=== PATIENT | female | born 1935 | race Caucasian/White ===

== ENCOUNTER 2017-03-15 00:46 | Inpatient (IN) | payer OTHER ==
[2017-03-15] VITALS (24 sets, daily range): BP systolic 87–134; BP diastolic 37–67
[~2017-03-15] VITALS: Ht 160 cm; Wt 84.7 kg
[~2017-03-15 00:46] MED LIST: ALLOPURINOL300 MG PO; AMITRIPTYLINE H25 MG PO; DILANTIN100 MG PO; HYDROCHLOROTHIA25 MG PO; OSTEO BI-FLEX1 EAC1 PO; OSTERA TABLET1 EACH PO; SPIRIVA1 INHALATI IH; VENTOLIN HFA18 GM IH; ZOLOFT50 MG PO
[2017-03-15 01:53] LABS: INTER. NORMALIZED RATIO 1.3
[2017-03-15 01:54] LABS: CHLORIDE 102 mEq/L (99-109); SODIUM 132 mEq/L (136-147)
[2017-03-15 01:55] LABS: MAGNESIUM 1.9 mg/dL (1.3-2.7); PTT 23.7 SEC (25-37)
[2017-03-15 01:57] LABS: GLUCOSE 140 mg/dL (70-99); TOTAL PROTEIN 7.9 g/dL (6.4-8.3)
[2017-03-15 01:59] LABS: TOTAL BILIRUBIN 0.3 mg/dL (0.0-1.0)
[2017-03-15 02:00] LABS: ALKALINE PHOSPHATASE 68 IU/L (3-129)
[2017-03-15 02:01] LABS: CREATININE 0.8 mg/dL (0.6-1.3); GFR ESTIMATE (CALCULATED) > 59 mL/min/
[2017-03-15 02:02] LABS: AST (GOT) 48 IU/L (2-34); UREA NITROGEN (BUN) 23 mg/dL (9-23)
[2017-03-15 02:04] LABS: ALT (GPT) 46 IU/L (3-49); BASOPHIL (%) 0 % (0-1); EOSINOPHIL (%) 0 % (0-5); HEMATOCRIT 18.8 % (36.0-46.0); HEMOGLOBIN 6.3 G/DL (11.9-15.5); IMMATURE GRANULOCYTE (%) 0.9 % (0.0-0.7); LYMPHOCYTE (%) 6.9 % (15-42); LYMPHOCYTE COUNT 0.3 K/uL (1.0-2.8); MCHC 33.5 G/DL (30.0-36.0); MCV 98.4 FL (83-99); MONOCYTE (%) 7.5 % (3-12); MONOCYTE COUNT 0.3 K/uL (0-0.8); NEUTROPHIL (%) 84.7 % (45-76); NEUTROPHIL COUNT 3.8 K/uL (1.8-6.4); PLATELET COUNT 79 K/uL (156-360); RBC DIS.WIDTH-CV 18.1 % (11.8-14.6); RBC DIS.WIDTH-SD 58.4 % (39-53); RED BLOOD COUNT 1.91 M/uL (3.80-5.20); WHITE BLOOD COUNT 4.5 K/uL (4.1-10.2)
[2017-03-15 02:06] LABS: TROP-I INTERPRETATION NEGATIVE; TROPONIN-I 0.06 ng/mL (0.0-0.30)
[2017-03-15 03:31] LABS: BICARBONATE 19.8 mEq/L (22-26); CARBOXY HGB 1.3 % (0-5); COMMENTS - BLOOD GASES C+; FI02 21 %; METHEMOGLOBIN 0.8 % (0-1.5); PCO2 26 mm Hg (35-45); PO2 67 mm Hg (80-100); SITE LB; pH 7.49 (7.35-7.45)
[2017-03-15] MEDS ORDERED: POTASSIUM CHLO20 ME2 PO (07:53)
[2017-03-15] MEDS ORDERED: ALLOPURINOL300 MG PO (07:53)
[2017-03-15] MEDS ORDERED: ACETAMINOPHEN500 MG PO (10:47)
[2017-03-15] MEDS ORDERED: ACYCLOVIR400 MG PO (10:47)
[2017-03-15] MEDS ORDERED: DECADRON4 MG PO (10:49)
[2017-03-15 11:22] LABS: APPEARANCE CLOUDY ((CLEAR)); BILIRUBIN NEGATIVE; BLOOD SMALL; COLOR YELLOW ((YELLOW)); GLUCOSE (STRIP) NEGATIVE; KETONES NEGATIVE; LEUKOCYTES LARGE; NITRITE NEGATIVE; PROTEIN (STRIP) 30; UROBILINOGEN 0.2 MG/DL (0.2-1.0)
[2017-03-15 13:29] LABS: RED BLOOD CELLS 0-5 /HPF (0-5); WHITE BLOOD CELLS TNTC /HPF (0-5)
[2017-03-15 13:30] LABS: BACTERIA NONE SEEN /HPF; EPITHELIAL CELLS 1+ /HPF; MUCUS NONE SEEN /LPF; UCUL ADDED? YES
[2017-03-15 13:38] LABS: SPECIFIC GRAVITY 1.065 (1.000-1.030)
[2017-03-16] VITALS (9 sets, daily range): BP systolic 99–153; BP diastolic 52–74
[2017-03-16 05:46] LABS: HEMATOCRIT 24.5 % (36.0-46.0); HEMOGLOBIN 8.1 G/DL (11.9-15.5); MCH 30.9 PG (29.0-34.0); MCHC 33.1 G/DL (30.0-36.0); PLATELET COUNT 59 K/uL (156-360); RBC DIS.WIDTH-CV 18.6 % (11.8-14.6); RBC DIS.WIDTH-SD 58.2 % (39-53); WHITE BLOOD COUNT 6.6 K/uL (4.1-10.2)
[2017-03-16 05:49] LABS: MCV 93.5 FL (83-99); RED BLOOD COUNT 2.62 M/uL (3.80-5.20)
[2017-03-16 06:42] LABS: ALKALINE PHOSPHATASE 60 IU/L (3-129); ALT (GPT) 53 IU/L (3-49); AST (GOT) 37 IU/L (2-34); CHLORIDE 103 MEQ/L (99-109); CREATININE 0.8 MG/DL (0.6-1.3); GFR ESTIMATE (CALCULATED) > 59 mL/min/; GLUCOSE 140 mg/dL (70-99); POTASSIUM 4.4 MEQ/L (3.7-5.4); SODIUM 135 MEQ/L (136-147); TOTAL BILIRUBIN 0.4 MG/DL (0.0-1.0); TOTAL PROTEIN 7.8 G/DL (6.4-8.3); UREA NITROGEN (BUN) 23 mg/dL (9-23)
[2017-03-17 03:16] VITALS: BP 160/74
[2017-03-17 06:38] LABS: HEMOGLOBIN 8.4 G/DL (11.9-15.5); MCH 30.5 PG (29.0-34.0); MCHC 32.3 G/DL (30.0-36.0); MCV 94.5 FL (83-99); PLATELET COUNT 75 K/uL (156-360); RBC DIS.WIDTH-CV 18.6 % (11.8-14.6); RBC DIS.WIDTH-SD 57.4 % (39-53); RED BLOOD COUNT 2.75 M/uL (3.80-5.20); WHITE BLOOD COUNT 8.7 K/uL (4.1-10.2)
[2017-03-17 07:07] LABS: ALBUMIN 3.2 G/DL (3.2-4.8); ALKALINE PHOSPHATASE 59 IU/L (3-129); ALT (GPT) 62 IU/L (3-49); AST (GOT) 31 IU/L (2-34); CHLORIDE 106 MEQ/L (99-109); CREATININE 0.7 MG/DL (0.6-1.3); GFR ESTIMATE (CALCULATED) > 59 mL/min/; GLUCOSE 122 mg/dL (70-99); SODIUM 137 MEQ/L (136-147); TOTAL BILIRUBIN 0.4 MG/DL (0.0-1.0); TOTAL PROTEIN 8.3 G/DL (6.4-8.3); UREA NITROGEN (BUN) 24 mg/dL (9-23)
[2017-03-17 07:44] VITALS: BP 162/77
[2017-03-17 11:54] VITALS: BP 138/63
== END 2017-03-17 13:17 | disposition home or self-care (01) | DRG 864 ==
LOC: EME 00:46 → 3EAST 03:39 → EDOF 03:39 → 4WEST 03:39 → CANRESERV 03:48 → ENRESERV 03:48 → 4WEST 06:06 → ENRESERV 03-16 06:51 → 3EAST 03-16 13:42
PROVIDERS: Emergency Medicine; Hospitalist; Internal Medicine
PROC: 30233N1 Transfusion of Nonautologous Red Blood Cells into Peripheral Vein, Percutaneous Approach (ICD-10-PCS; principal; 2017-03-15)
DX: R50.2 Drug induced fever (principal); E87.1 Hypo-osmolality and hyponatremia; T45.1X5A Adverse effect of antineoplastic and immunosuppressive drugs, initial encounter; J44.9 Chronic obstructive pulmonary disease, unspecified; C88.0 Waldenstrom macroglobulinemia; I11.0 Hypertensive heart disease with heart failure; I50.9 Heart failure, unspecified; R16.1 Splenomegaly, not elsewhere classified; R91.1 Solitary pulmonary nodule; D64.81 Anemia due to antineoplastic chemotherapy; E78.5 Hyperlipidemia, unspecified; E87.2 Acidosis; K21.9 Gastro-esophageal reflux disease without esophagitis; D73.89 Other diseases of spleen; D69.59 Other secondary thrombocytopenia; G40.909 Epilepsy, unspecified, not intractable, without status epilepticus; D86.9 Sarcoidosis, unspecified; I95.9 Hypotension, unspecified; E66.9 Obesity, unspecified; Z68.33 Body mass index [BMI] 33.0-33.9, adult
CPT/HCPCS: 36415; 36600; 71045; 71275; 74177; 80048; 80053; 80076; 80185; 81003; 82248; 82272; 82803; 83605; 83735; 83880; 84484; 85025; 85027; 85610; 85730; 86850; 86870; 86900; 86901; 86920; 87040; 87086; 87502; 87641; 93005; 94640; 94640 76; 94799; 97530 GP; 99202; 99281; 99285; J1940; J2543; J2930; J3370; J7050; J7120; P9016

== ENCOUNTER 2017-04-11 21:20 | Inpatient (IN) | payer OTHER ==
[~2017-04-11] VITALS: Ht 162.6 cm; Wt 82.5 kg
[~2017-04-11 21:20] MED LIST changes: +ACYCLOVIR400 MG PO; +DECADRON4 MG PO; +POTASSIUM CHLO20 ME2 PO; +TYLENOL EXTRA500 MG PO
[2017-04-11 22:25] LABS: BASOPHIL (%) 0 % (0-1); EOSINOPHIL (%) 0.1 % (0-5); HEMATOCRIT 23.9 % (36.0-46.0); HEMOGLOBIN 7.9 G/DL (11.9-15.5); IMMATURE GRANULOCYTE (%) 0.7 % (0.0-0.7); LYMPHOCYTE (%) 1.2 % (15-42); LYMPHOCYTE COUNT 0.1 K/uL (1.0-2.8); MCH 34.2 PG (29.0-34.0); MCHC 33.1 G/DL (30.0-36.0); MONOCYTE (%) 7.2 % (3-12); MONOCYTE COUNT 0.6 K/uL (0-0.8); NEUTROPHIL (%) 90.8 % (45-76); NEUTROPHIL COUNT 7.3 K/uL (1.8-6.4); PLATELET COUNT 118 K/uL (156-360); RBC DIS.WIDTH-CV 26.5 % (11.8-14.6); RBC DIS.WIDTH-SD 92.5 % (39-53); RED BLOOD COUNT 2.31 M/uL (3.80-5.20)
[2017-04-11 22:26] LABS: MCV 103.5 FL (83-99)
[2017-04-11 22:29] LABS: ALBUMIN 3.7 g/dL (3.2-4.8)
[2017-04-11 22:30] LABS: CHLORIDE 104 mEq/L (99-109); POTASSIUM 3.7 mEq/L (3.7-5.4); SODIUM 136 mEq/L (136-147)
[2017-04-11 22:32] LABS: TOTAL PROTEIN 7.1 g/dL (6.4-8.3)
[2017-04-11 22:34] LABS: TOTAL BILIRUBIN 0.4 mg/dL (0.0-1.0)
[2017-04-11 22:35] LABS: ALKALINE PHOSPHATASE 78 IU/L (3-129); GLUCOSE 121 mg/dL (70-99)
[2017-04-11 22:36] LABS: CREATININE 0.8 mg/dL (0.6-1.3); GFR ESTIMATE (CALCULATED) > 59 mL/min/
[2017-04-11 22:37] LABS: AST (GOT) 43 IU/L (2-34)
[2017-04-11 22:39] LABS: ALT (GPT) 41 IU/L (3-49); LIPASE 40 U/L (1.0-51.0); UREA NITROGEN (BUN) 21 mg/dL (9-23)
[2017-04-11 22:45] LABS: TROP-I INTERPRETATION NEGATIVE; TROPONIN-I < 0.01 ng/mL (0.0-0.30)
[2017-04-12] VITALS (14 sets, daily range): BP systolic 92–139; BP diastolic 53–80
[2017-04-12] MEDS ORDERED: KLOR-CON M2020 MEQ PO (01:01)
[2017-04-12] MEDS ORDERED: FUROSEMIDE20 MG PO (01:02)
[2017-04-12] MEDS ORDERED: COMPAZINE10 MG PO (01:05)
[2017-04-12] MEDS ORDERED: FOLIC ACID0.4 MG PO (01:06)
[2017-04-12] MEDS ORDERED: ASCORBIC ACID500 M3 PO (01:06)
[2017-04-12] MEDS ORDERED: GARLIQUE PO (01:06)
[2017-04-12] MEDS ORDERED: BETA CAROT10000 UNIT PO (01:06)
[2017-04-12] MEDS ORDERED: VITAMIN E200 UNI2 PO (01:06)
[2017-04-12] MEDS ORDERED: BALANCED B-501 EAC1 PO (01:07)
[2017-04-12] MEDS ORDERED: SELENIUM200 MC3 PO (01:07)
[2017-04-12] MEDS ORDERED: GINSENG COMPLE1 EACH PO (01:07)
[2017-04-12] MEDS ORDERED: GARLIC200 MG PO (01:07)
[2017-04-12] MEDS ORDERED: CALCIUM-MAGNES1 EA10 PO (01:08)
[2017-04-12] MEDS ORDERED: CALTRATE 600 +1 EAC1 PO (01:08)
[2017-04-12] MEDS ORDERED: ZINC50 M1 PO (01:08)
[2017-04-12] MEDS ORDERED: VITAMIN D400 UNIT PO (01:08)
[2017-04-12] MEDS ORDERED: OSTEO BI-FLEX1 EAC1 PO (01:09)
[2017-04-12] MEDS ORDERED: TART CHERRY CA1 EACH PO (01:09)
[2017-04-12] MEDS ORDERED: TURMERIC 500 M1 EACH PO (01:09)
[2017-04-12 06:13] LABS: BILIRUBIN NEGATIVE; BLOOD NEGATIVE; GLUCOSE (STRIP) NEGATIVE; KETONES NEGATIVE; LEUKOCYTES NEGATIVE; NITRITE NEGATIVE; PROTEIN (STRIP) 30; SPECIFIC GRAVITY 1.014 (1.000-1.030); UROBILINOGEN 0.2 MG/DL (0.2-1.0)
[2017-04-12 06:16] LABS: APPEARANCE CLEAR ((CLEAR)); COLOR YELLOW ((YELLOW)); UCUL ADDED? NO
[2017-04-13 06:30] LABS: CHLORIDE 109 MEQ/L (99-109); CREATININE 0.7 MG/DL (0.6-1.3); GFR ESTIMATE (CALCULATED) > 59 mL/min/; GLUCOSE 100 mg/dL (70-99); POTASSIUM 3.9 MEQ/L (3.7-5.4); SODIUM 140 MEQ/L (136-147); UREA NITROGEN (BUN) 26 mg/dL (9-23)
[2017-04-13 06:43] LABS: HEMATOCRIT 25.5 % (36.0-46.0); HEMOGLOBIN 8.4 G/DL (11.9-15.5); MCH 32.7 PG (29.0-34.0); MCHC 32.9 G/DL (30.0-36.0); PLATELET COUNT 94 K/uL (156-360); RBC DIS.WIDTH-CV 24.7 % (11.8-14.6); RBC DIS.WIDTH-SD 83.6 % (39-53); RED BLOOD COUNT 2.57 M/uL (3.80-5.20); WHITE BLOOD COUNT 4.9 K/uL (4.1-10.2)
[2017-04-13 06:44] LABS: MCV 99.2 FL (83-99)
[2017-04-13 07:43] VITALS: BP 140/63
== END 2017-04-13 11:35 | disposition home or self-care (01) | DRG 864 ==
LOC: EME 21:20 → 3EAST 04-12 01:29 → EDOF 04-12 01:29 → ENRESERV 04-12 01:34 → 3EAST 04-12 02:44
PROVIDERS: Emergency Medicine; Hospitalist
PROC: 30233N1 Transfusion of Nonautologous Red Blood Cells into Peripheral Vein, Percutaneous Approach (ICD-10-PCS; principal; 2017-04-12)
DX: R50.2 Drug induced fever (principal); T45.1X5A Adverse effect of antineoplastic and immunosuppressive drugs, initial encounter; C88.0 Waldenstrom macroglobulinemia; C91.10 Chronic lymphocytic leukemia of B-cell type not having achieved remission; D64.9 Anemia, unspecified; D69.6 Thrombocytopenia, unspecified; E11.9 Type 2 diabetes mellitus without complications; E78.5 Hyperlipidemia, unspecified; G40.909 Epilepsy, unspecified, not intractable, without status epilepticus; I11.0 Hypertensive heart disease with heart failure; I50.9 Heart failure, unspecified; J44.9 Chronic obstructive pulmonary disease, unspecified; K21.9 Gastro-esophageal reflux disease without esophagitis; G43.909 Migraine, unspecified, not intractable, without status migrainosus; J84.9 Interstitial pulmonary disease, unspecified; Z85.3 Personal history of malignant neoplasm of breast; Z87.891 Personal history of nicotine dependence
CPT/HCPCS: 36415; 71045; 80048; 80053; 81003; 83605; 83690; 84484; 85025; 85027; 86850; 86900; 86901; 86920; 87040; 87502; 93005; 94640; 94640 76; 94799; 99281; 99285; J1200; J2543; J2920; J3370; J7040; J7050; P9016